=== PATIENT | female | born 1995 | race Caucasian/White ===

== ENCOUNTER → 2019-04-01 | Outpatient (CLI) | payer BC ==
--- NOTE | 2019-04-01 15:08 | FL ---
Hysterosalpingogram history: Infertility Following informed consent, the speculum was introduced into the vagina. The offset the cervix was id entified and prepped with Betadine. Catheter was introduced into the cervix and balloon inflated. Gen tle hand injection of nonionic contrast was performed under intermittent fluoroscopy. Spot images wer e obtained. Following the procedure the catheter was removed following deflation of the balloon. Spec ulum was removed. There is no immediate application. Patient remained in stable condition. 1 minute 37 seconds fluoroscopy time. 8 images obtained. FINDINGS: The uterus fills normally. Fallopian tubes are patent bilaterally. There is free spill of c ontrast material from each tube. IMPRESSION: Patent fallopian tubes.
== END | disposition home or self-care (01) ==
LOC: RADFLWHC 12:58
PROVIDERS: ATTEND Obstetrics & Gynecology Obstetrics
DX: N97.9 Female infertility, unspecified (principal)
CPT/HCPCS: 58340; 74740; Q9967

== ENCOUNTER 2020-11-03 17:11 | Emergency (ER) | payer BC, OTHER ==
[2020-11-03] MEDS ORDERED: SODIUM CHLORIDE 0.9% 1,000 ML IV STA (17:28)
--- NOTE | 2020-11-03 17:42 | ED ---
General Adult HPI - General Source: patient Mode of arrival: wheelchair Limitations: no limitations <Garfield Mena - Last Filed: 11/03/20 19:09> <Marguerite Hodges - Last Filed: 11/03/20 21:20> - General Chief complaint: Shortness of Breath Stated complaint: sob/20 weeks +covid Time Seen by Provider: 11/03/20 17:26 - History of Present Illness Initial comments: 25-year-old female, presenting to emergency Department with a chief complaint of shortness of breath. Patient states her symptoms began approximately 6 days ago. She does report a nonproductive cough mostly with occasional sputum production. She does report dyspnea on exertion along with some chest pressure in the morning. She denies history of asthma or smoking prior to her . No history of COPD UA. Patient also reports some generalized fatigue. She does report nausea, multiple episodes of nonbilious and nonbloody vomiting. States this feels like her typical nausea vomiting secondary to . Patient states she was tested yesterday and had the positive results today. Denies any abdominal pain vaginal or urinary symptoms. Denies any vaginal bleeding. Denies constipation or diarrhea. Denies night swe ats fevers or chills. (Garfield Mena) - Related Data Home Medications Medication Instructions Recorded Confirmed Acetaminophen Tab [Tylenol] 325 mg PO Q4H PRN 11/03/20 11/03/20 Aspirin EC [Ecotrin Low Dose] 81 mg PO DAILY 11/03/20 11/03/20 Pnv,Calcium 72/Iron/Folic Acid 1 tab PO DAILY 11/03/20 11/03/20 [ Plus Tablet] Previous Rx's Medication Instructions Recorded Ascorbic Acid [Vitamin C] 500 mg PO DAILY #10 tablet 11/03/20 Cephalexin [Keflex] 500 mg PO BID 1 Days #14 cap 11/03/20 Zinc Sulfate [Orazinc] 220 mg PO DAILY #10 capsule 11/03/20 Allergies Allergy/AdvReac Type Severity Reaction Status Date / Time No Known Allergies Allergy Verified 11/03/20 20:23 Review of Systems ROS Other: All systems not noted in ROS Statement are negative. <Garfield Mena - Last Filed: 11/03/20 19:09> ROS Other: All systems not noted in ROS Statement are negative. <Marguerite Hodges Triston - Last Filed: 11/03/20 21:20> ROS Statement: Those systems with pertinent positive or pertinent negative responses have been documented in the HPI. Past Medical History Past Medical History: No Reported History History of Any Multi-Drug Resistant Organisms: None Reported Past Surgical History: No Surgical Hx Reported Past Psychological History: No Psychological Hx Reported Smoking Status: Never smoker Past Alcohol Use History: None Reported Past Drug Use History: None Reported <Garfield Mena - Last Filed: 11/03/20 19:09> General Exam Limitations: no limitations General appearance: alert, in no apparent distress Head exam: Present: atraumatic, normocephalic, normal inspection Eye exam: Present: normal appearance, PERRL, EOMI Pupils: Present: normal accommodation ENT exam: Present: normal exam, normal oropharynx, mucous membranes moist, TM's normal bilaterally, normal external ear exam Neck exam: Present: normal inspection, full ROM. Absent: tenderness Respiratory exam: Present: normal lung sounds bilaterally. Absent: respiratory distress, wheezes, rales, rhonchi, stridor, chest wall tenderness, accessory muscle use Cardiovascular Exam: Present: regular rate, normal rhythm, normal heart sounds. Absent: systolic murmur, diastolic murmur GI/Abdominal exam: Present: soft ([place] nearing the umbilicus). Absent: distended, tenderness, guarding, rebound, rigid Extremities exam: Present: normal inspection, full ROM, normal capillary refill, other (+2 dorsalis pedis and posterior tibials bilaterally.). Absent: tenderne ss, pedal edema, joint swelling, calf tenderness Back exam: Present: normal inspection, full ROM. Absent: tenderness, CVA tenderness (R), CVA tenderness (L), muscle spasm, paraspinal tenderness Neurological exam: Present: alert, oriented X3, normal gait Psychiatric exam: Present: normal affect, normal mood Skin exam: Present: warm, dry, intact, normal color <Garfield Mena - Last Filed: 11/03/20 19:09> Course Vital Signs 11/03/20 11/03/20 11/03/20 17:19 18:15 19:00 Temperature 99.3 F Pulse Rate 132 H 111 H 106 H Respiratory 22 20 20 Rate Blood Pressure 113/69 101/56 120/67 O2 Sat by Pulse 99 96 99 Oximetry 11/03/20 21:01 Temperature 98.2 F Pulse Rate 110 H Respiratory 18 Rate Blood Pressure 120/72 O2 Sat by Pulse 96 Oximetry Medical Decision Making - Lab Data Result diagrams: 11/03/20 18:15 11/03/20 18:15 <Garfield Mena - Last Filed: 11/03/20 19:09> - Lab Data Result diagrams: 11/03/20 18:15 11/03/20 18:15 <Marguerite Hodges - Last Filed: 11/03/20 21:20> - Medical Decision Making 25-year-old female, presenting to the emergency department with a chief complaint of shortness of breath. CBC unremarkable. CMP reveals hypokalemia with potassium of 3.1. K-elías 40meq. Patient was also given IV fluids and antiemetics. Chest x-ray reveals increased pulmonary markings with no signs of heart failure. No signs of pneumonia. Patient was initially tachycardic but t his has gradually improved with IV fluids. UA pending At this time, patient care signed off to (Garfield Mena) I took over the patient's care. I did do a bedside ultrasound which demonstrates positive movement and heart tones with a rate of 154. I did review the patient's laboratory studies and imaging. Patient does have improvement in her heart rate. Feels comfortable for discharge at this time. Patient was discharged home. Follow up with her FLOORHAND 10 days after her symptoms resolve. Return to the emergency department for any new or worsening symptoms. She is given vitamin C and zinc for her covid symptoms. Keflex recommended for her abnormal UA. This was discussed with Dr. Meadows. He did agree to the treatment plan. The patient was discharged home in stable condition (Marguerite Hodges) - Lab Data Lab Results 11/03/20 11/03/20 11/03/20 Range/Units 18:15 18:15 19:26 WBC 8.5 (3.8-10.6) k/uL RBC 4.58 (3.80-5.40) m/uL Hgb 12.7 (11.4-16.0) gm/dL Hct 37.2 (34.0-46.0) % MCV 81.1 (80.0-100.0) fL MCH 27.6 (25.0-35.0) pg MCHC 34.1 (31.0-37.0) g/dL RDW 15.1 (11.5-15.5) % Plt Count 182 (150-450) k/uL MPV 7.3 Neutrophils % 89 % Lymphocytes % 7 % Monocytes % 3 % Eosinophils % 0 % Basophils % 0 % Neutrophils # 7.6 (1.3-7.7) k/uL Lymphocytes # 0.6 L (1.0-4.8) k/uL Monocytes # 0.3 (0-1.0) k/uL Eosinophils # 0.0 (0-0.7) k/uL Basophils # 0.0 (0-0.2) k/uL Sodium 136 L (137-145) mmol/L Potassium 3.1 L (3.5-5.1) mmol/L Chloride 108 H (98-107) mmol/L Carbon Dioxide 21 L (22-30) mmol/L Anion Gap 7 mmol/L BUN 3 L (7-17) mg/dL Creatinine 0.59 (0.52-1.04) mg/dL Est GFR (CKD-EPI)AfAm >90 (>60 ml/min/1.73 sqM) Est GFR (CKD-EPI)NonAf >90 (>60 ml/min/1.73 sqM) Glucose 98 (74-99) mg/dL Calcium 8.7 (8.4-10.2) mg/dL Total Bilirubin 0.6 (0.2-1.3) mg/dL AST 39 H (14-36) U/L ALT 46 H (4-34) U/L Alkaline Phosphatase 81 (38-126) U/L Total Protein 6.2 L (6.3-8.2) g/dL Albumin 3.3 L (3.5-5.0) g/dL Urine Color Yellow Urine Appearance Cloudy H (Clear) Urine pH 5.5 (5.0-8.0) Ur Specific [place] 1.011 (1.001-1.035) Urine Protein Trace H (Negative) Urine Glucose (UA) Negative (Negative) Urine Ketones 3+ H (Negative) Urine Blood Negative (Negative) Urine Nitrite Negative (Negative) Urine Bilirubin Negative (Negative) Urine Urobilinogen <2.0 (<2.0) mg/dL Ur Leukocyte Esterase Negative (Negative) Urine RBC 1 (0-5) /hpf Urine WBC 5 (0-5) /hpf Ur Squamous Epith Cells 9 H (0-4) /hpf Urine Bacteria Moderate H (None) /hpf Urine Mucus Few H (None) /hpf - EKG Data EKG Comments: Sinus tachycardia Ventricular rate 113, TX 164, QRS 84, QTC 433. (Garfield Mena) Disposition <Garfield Mena - Last Filed: 11/03/20 19:09> Is patient prescribed a controlled substance at d/c from ED?: No Time of Disposition: 21:06 <Marguerite Hodges - Last Filed: 11/03/20 21:20> Clinical Impression: COVID-19, Abnormal urinalysis, Hypokalemia Disposition: HOME SELF-CARE Condition: Stable Instructions (If sedation given, give patient instructions): Upper Respiratory Infection (ED) Additional Instructions: Please follow up with your OBGYN 10 days AFTER your symptoms resolve. Return to the ED for any new or worsening symptoms. Prescriptions: Cephalexin [Keflex] 500 mg PO BID 1 Days #14 cap Zinc Sulfate [Orazinc] 220 mg PO DAILY #10 capsule Ascorbic Acid [Vitamin C] 500 mg PO DAILY #10 tablet Referrals: None,Stated [REFERRING] - 1-2 days Lili Rose DO [Doctor of Osteopathic Medicine] - 1-2 days
[2020-11-03 18:24] LABS: Basophils % (A) 0 %; Eosinophils % (A) 0 %; HCT 37.2 % (34.0-46.0); HGB 12.7 gm/dL (11.4-16.0); Lymphocytes # (A) 0.6 k/uL (1.0-4.8); Lymphocytes % (A) 7 %; MCH 27.6 pg (25.0-35.0); MCHC 34.1 g/dL (31.0-37.0); MCV 81.1 fL (80.0-100.0); Mean Platelet Volume 7.3; Monocytes # (A) 0.3 k/uL (0-1.0); Monocytes % (A) 3 %; Neutrophils # (A) 7.6 k/uL (1.3-7.7); Neutrophils % (A) 89 %; Platelet Count 182 k/uL (150-450); RBC 4.58 m/uL (3.80-5.40); RDW 15.1 % (11.5-15.5); WBC 8.5 k/uL (3.8-10.6)
--- NOTE | 2020-11-03 18:32 | XR ---
EXAMINATION TYPE: XR chest 2V DATE OF EXAM: 11/03/2020 COMPARISON: NONE HISTORY: Cough TECHNIQUE: 2 views FINDINGS: There is no heart failure. Heart size is normal. Costophrenic angles are clear. There are n o hilar masses. There are chest leads. Pulmonary vascularity is normal. There is slight coarsening of interstitial markings. IMPRESSION: Normal heart. Slight increased lung markings without consolidation or heart failure.
[2020-11-03 18:33] LABS: ALT 46 U/L (4-34); AST 39 U/L (14-36); African American GFR (CKD) >90 (>60 ml/min/1.73 sqM); Albumin 3.3 g/dL (3.5-5.0); Alkaline Phosphatase 81 U/L (38-126); Anion Gap 7 mmol/L; Blood Urea Nitrogen 3 mg/dL (7-17); Calcium 8.7 mg/dL (8.4-10.2); Carbon Dioxide 21 mmol/L (22-30); Chloride 108 mmol/L (98-107); Glucose 98 mg/dL (74-99); Non-African American GFR(CKD) >90 (>60 ml/min/1.73 sqM); Potassium 3.1 mmol/L (3.5-5.1); Sodium 136 mmol/L (137-145); Total Bilirubin 0.6 mg/dL (0.2-1.3); Total Protein 6.2 g/dL (6.3-8.2)
[2020-11-03] MEDS ORDERED: POTASSIUM CHLORIDE ER 20 MEQ TAB.ER PO STA (18:52)
[2020-11-03] MEDS ORDERED: diphenhydrAMINE 50 MG/ML 1 ML VIAL IVP STA (18:53)
[2020-11-03] MEDS ORDERED: METOCLOPRAMIDE 5 MG/ML 2 ML VIAL IVP STA (18:53)
[2020-11-03 19:46] LABS: Appearance,Urine Cloudy (Clear); Bacteria,Urine Moderate /hpf; Bilirubin,Urine Negative (Negative); Blood,Urine Negative (Negative); Color,Urine Yellow; Glucose,Urine (UA) Negative (Negative); Ketones,Urine 3+ (Negative); Leukocyte Esterase,Urine Negative (Negative); Mucus,Urine Few /hpf; Nitrite,Urine Negative (Negative); PH, Urine 5.5 (5.0-8.0); Protein,Urine Trace (Negative); RBC,Urine 1 /hpf (0-5); Specific Gravity,Urine 1.011 (1.001-1.035); Squamous Epithelial Cell,Urine 9 /hpf (0-4); Urobilinogen,Urine <2.0 mg/dL (<2.0); WBC,Urine 5 /hpf (0-5)
[2020-11-03 21:03] VITALS: BP 120/72; PULSE 110; RESP 18; TEMP 98.2
[2020-11-03] MEDS ORDERED: CEPHALEXIN 500 MG CAP PO STA (21:06)
== END 2020-11-03 21:22 | disposition home or self-care (01) ==
LOC: EC 17:11
DX: U07.1 COVID-19 (principal); E87.6 Hypokalemia; R82.90 Unspecified abnormal findings in urine
CPT/HCPCS: 36415; 93005; 80053; 85025; 81001; 71046; 99285; 96374; 96375; 96361; J1200; J2765

== ENCOUNTER 2021-03-18 14:21 | Inpatient (IN) | payer BC, OTHER ==
--- NOTE | 2021-03-18 16:00 | US ---
EXAMINATION TYPE: US OB BPP wo non-stress DATE OF EXAM: 03/18/2021 COMPARISON: NONE CLINICAL HISTORY: low baseline FHR. EXAM PERFORMED: Transabdominal (TA) BPP PARAMETERS: PRESENTATION: Vertex HEART RATE: 101 bpm, 104 bpm RHYTHM: Normal VERONICA: 10.2 DIAPHRAGM IMAGED: BPP SCORIN. Breathin (1 episode of breathing of 30 second duration in 30 minutes of scanning time) 2. Movement: 0 (at least 3 discrete body movements in 30 minutes) 3. Tone: 0 (1 episode of active flexion/extension of limb) 4. VERONICA: 2 (VERONICA index > 5cm) IMPRESSION: TOTAL SCORE: 4 / 8. Score is only 4. Correlate clinically.
[2021-03-18] MEDS ORDERED: LACTATED RINGERS 1,000 ML IV ONE (16:28)
[2021-03-18] MEDS ORDERED: CITRIC ACID-SODIUM CITRATE 15 ML CUP PO ONE (16:28)
[2021-03-18 16:38] LABS: Basophils % (A) 0 %; Eosinophils # (A) 0.2 k/uL (0-0.7); Eosinophils % (A) 2 %; HCT 37.9 % (34.0-46.0); HGB 13.3 gm/dL (11.4-16.0); Lymphocytes # (A) 1.5 k/uL (1.0-4.8); Lymphocytes % (A) 14 %; MCV 85.7 fL (80.0-100.0); Mean Platelet Volume 9.2; Monocytes # (A) 0.5 k/uL (0-1.0); Monocytes % (A) 5 %; Neutrophils # (A) 8.1 k/uL (1.3-7.7); Neutrophils % (A) 78 %; Platelet Count 187 k/uL (150-450); RBC 4.42 m/uL (3.80-5.40); RDW 13.9 % (11.5-15.5); WBC 10.4 k/uL (3.8-10.6)
[2021-03-18] MEDS ORDERED: METOCLOPRAMIDE 5 MG/ML 2 ML VIAL IVP PRN (16:44)
[2021-03-18] MEDS ORDERED: diphenhydrAMINE 25 MG CAP PO PRN (16:44)
[2021-03-18] MEDS ORDERED: NALOXONE 0.4 MG/ML 1 ML VIAL IV PRN (16:44)
[2021-03-18] MEDS ORDERED: SIMETHICONE 80 MG CHEWABLE PO PRN (16:44)
[2021-03-18] MEDS ORDERED: ZOLPIDEM 5 MG TAB PO PRN (16:44)
[2021-03-18] MEDS ORDERED: diphenhydrAMINE 50 MG CAP PO PRN (16:44)
[2021-03-18] MEDS ORDERED: diphenhydrAMINE 50 MG/ML 1 ML VIAL IVP PRN ×2 (16:44)
[2021-03-18] MEDS ORDERED: ONDANSETRON 4 MG/2 ML VIAL IVP PRN (16:44)
[2021-03-18] MEDS ORDERED: OXYTOCIN 30 UNITS/500 ML NS 30 UNIT in SALINE 1 500ML.BAG IV SCH (16:45)
[2021-03-18] MEDS ORDERED: PHENYLEPHRINE-0.9% NACL SYG 1,000 MCG/10 ML SYRINGE ONE (17:07)
[2021-03-18] MEDS ORDERED: OXYTOCIN 10 UNIT/ML 1 ML VIAL ONE (17:07)
[2021-03-18] MEDS ORDERED: ONDANSETRON 4 MG/2 ML VIAL ONE (17:07)
[2021-03-18] MEDS ORDERED: MORPHINE SULFATE (PF) 0.3 MG/0.3 ML SYR ONE (17:07)
[2021-03-18] MEDS ORDERED: ePHEDrine SULFATE/0.9% NACL/PF 50 MG/5 ML SYRINGE IV ONE (17:07)
--- NOTE | 2021-03-18 18:06 | P.OP ---
Date of Procedure: 03/18/21 Preoperative Diagnosis: IUP @ 39 3/7 weeks, nonreassuring status Postoperative Diagnosis: Same Procedure(s) Performed: Primary low transverse section Anesthesia: spinal Surgeon: Lili Rose Customer Service Trainer #1: Aron Haji Estimated Blood Loss (ml): 684 IV fluids (ml): 1,300 Urine output (ml): 100 Pathology: other (Placenta) Condition: stable Disposition: observation Indications for Procedure: 25-year-old at 39 3 was seen in the office today for routine care. Low baseline was noted. Patient was sent to OB for continued monitoring. baseline of 110 was appreciated with minimal variability, category 2. BPP was performed and found to be 4 out of 8. Patient was counseled on primary secondary to nonreassuring status. Patient stated understanding and was taken back to the operating suite. Operative Findings: Normal uterus tubes and ovaries were appreciated. Viable female delivered at 1725, weight of 8 lbs. 9 oz. and Apgars of 8 and 9 at one and 5 minutes respectively. Description of Procedure: Patient was taken back to the operating suite where spinal anesthesia was found be adequate by the anesthesia department. She was then prepped and draped in normal sterile fashion in the dorsal supine position. A Pfannenstiel skin incision made with scalpel and carried through to underlying layer of fascia. Fascia was then incised midline and extended laterally. The superior aspect of the fascial incision was then grasped john clamps, elevated and underlying rectus muscles dissected off sharply. Attention was then turned to the inferior aspect of the fascial incision which was grasped john clamps, elevated and the underlying rectus muscle was dissected off sharply. The rectus muscles were in the midline the peritoneum was identified and entered. This incision was then extended superiorly and inferiorly with good visualization of bladder. The bladder blade was then inserted into the pelvis. The vesicouterine peritoneum was identified and the bladder flap was then created using sharp and blunt dissection. Hysterotomy incision was then made with a scalpel clear fluid was obtained. The infant was noted to be in a vertex presentation. Infant was delivered in usual fashion the umbilical cord was doubly clamped and cut and handed off to awaiting RN. A spontaneous cry was noted at . The placenta was then delivered manually the uterus was cleared of all clots and debris and delivered from the abdomen. Uterine incision was then closed 0 Vicryl in a running locked fashion. A second imbricating layer was performed. Bleeding was noted on the right-hand side of the uterus therefore a [id number] suture was used to obtain hemostasis. The pelvis was then copiously irrigated and returned to the abdomen. The gutters were cleared of all clots and debris. A small amount of bleeding was noted on the midportion of the hysterotomy incision therefore a [id number] suture of 0 Vicryl was performed. Hemostasis was then appreciated. The peritoneum was then loosely reapproximated. The rectus muscles were inspected and found to be hemostatic. The fascia was then closed with 0 Vicryl in a running fashion from one lateral edge the midline and the other lateral edge the midline. The subcutaneous tissue was then irrigated found to be hemostatic and closed with 3- 0 Vicryl in a running fashion. The skin was then closed with 4-0 Vicryl in a subcu fashion. Steri-Strips and sterile dressings were applied. All counts were noted be correct 2 at the end the procedure. Patient and tolerated delivery well and are resting comfortably.
--- NOTE | 2021-03-18 18:06 | P.HPOB ---
History of Present Illness H&P Date: 03/18/21 Chief Complaint: IUP @ 39 3/7 weeks, non reassuring status This is a 25 yo at 39 3/7 weeks that was seen in the office today and low baseline of 100 was noted. Patient presented to OB triage for planned nonstress test. Nonstress test revealing low baseline of 110, BPP was performed and found to be 4 out of 10. Patient notes movement, denies contractions vaginal bleeding or loss of fluid. Patient has been receiving routine care which has been essentially uncomplicated, until today. On bloodwork this patient has a blood type of A+, rubella status is immune, B surface antigen negative, HIV negative, group beta strep culture was negative. Review of Systems Constitutional: Denies chills, Denies fatigue, Denies fever Ears, nose, mouth and throat: Denies headache Cardiovascular: Reports leg edema Respiratory: Denies dyspnea Gastrointestinal: Denies constipation, Denies diarrhea, Denies nausea, Denies vomiting Genitourinary: Reports Past Medical History Past Medical History: No Reported History History of Any Multi-Drug Resistant Organisms: None Reported Past Surgical History: No Surgical Hx Reported Smoking Status: Never smoker - Past Family History Father Family Medical History: Chest Pain / Angina Additional Family Medical History / Comment(s): [place] stents placed Mother Family Medical History: Cancer Medications and Allergies Home Medications Medication Instructions Recorded Confirmed Type Aspirin EC [Ecotrin Low Dose] 81 mg PO DAILY 11/03/20 03/18/21 History Pnv,Calcium 72/Iron/Folic Acid 1 tab PO DAILY 11/03/20 03/18/21 History [ Plus Tablet] Escitalopram [Lexapro] 10 mg PO DAILY 03/18/21 03/18/21 History Allergies Allergy/AdvReac Type Severity Reaction Status Date / Time No Known Allergies Allergy Verified 03/18/21 14:25 Exam Osteopathic Statement: *. No significant issues noted on an osteopathic structural exam other than those noted in the History and Physical/Consult. 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 Results Result Diagrams: 03/18/21 16:35 Assessment and Plan (1) 39 weeks gestation of Current Visit: Yes Status: Acute Code(s): Z3A.39 - 39 WEEKS GESTATION OF SNOMED Code(s): 89918162 (2) Non-reassuring status Current Visit: Yes Status: Acute Code(s): ULA5028 - SNOMED Code(s): 644062660 Plan: This is a 25 yo at 39 3/7 weeks, noted low baseline, and BPP of 4/10. I did discuss with the patient the findings of the biophysical profile along with a low baseline, and biophysical profile of 4 out of 10. Discussed with patient need for primary secondary to nonreassuring status. Patient states understanding. is discussed with the patient and partner risks are reviewed including but down to infection, bleeding, damage to bladder, bowel, injury. Patient states understanding and anesthesia is notified. We will await labs and plan on spinal anesthesia as this is not emergent.
[2021-03-18] MEDS: ACETAMINOPHEN IV (For NPO) 1,000 MG in EMPTY BAG 1 BAG IVPB SCH (21:12)
[2021-03-19] MEDS: IBUPROFEN IV 800 MG in SODIUM CHLORIDE 0.9% 250 ML IV SCH ×3 (01:00→21:10)
[2021-03-19] MEDS: LACTATED RINGERS 1,000 ML IV SCH ×3 (02:02→21:10)
[2021-03-19] MEDS: ACETAMINOPHEN TAB 500 MG TAB PO SCH ×5 (02:02→21:10)
[2021-03-19] MEDS: SENNOSIDES-DOCUSATE SODIUM 1 EACH TAB PO SCH ×3 (02:02→19:38)
[2021-03-19] MEDS: IBUPROFEN 600 MG TAB PO SCH ×4 (02:03→21:10)
[2021-03-19] MEDS: ACETAMINOPHEN IV (For NPO) 1,000 MG in EMPTY BAG 1 BAG IVPB SCH (04:10)
[2021-03-19 07:46] LABS: Basophils % (A) 0 %; Eosinophils # (A) 0.2 k/uL (0-0.7); Eosinophils % (A) 2 %; HGB 10.4 gm/dL (11.4-16.0); Lymphocytes # (A) 1.1 k/uL (1.0-4.8); Lymphocytes % (A) 13 %; MCH 30.1 pg (25.0-35.0); MCHC 34.7 g/dL (31.0-37.0); MCV 86.7 fL (80.0-100.0); Mean Platelet Volume 9.7; Monocytes # (A) 0.5 k/uL (0-1.0); Monocytes % (A) 6 %; Neutrophils % (A) 78 %; Platelet Count 144 k/uL (150-450); RBC 3.46 m/uL (3.80-5.40); RDW 14.1 % (11.5-15.5)
--- NOTE | 2021-03-19 08:32 | P.PNOBGPC ---
Subjective - Subjective Principal diagnosis: POD 1 LTCS non reassuring testing Interval history: She did well overnight. She is ambulating and voiding without difficulty. She states her pain is well-controlled. She is tolerating clear liquids without nausea or vomiting. Breast-feeding is going well. Patient reports: Reports appetite normal, Reports voiding normally, Reports pain well controlled, Reports ambulating normally : doing well Objective - Vital Signs Latest vital signs: Vital Signs Temp Pulse Resp BP Pulse Ox 03/19/21 04:00 97.7 F 90 16 111/69 03/18/21 19:57 96.3 F L 98 16 120/67 98 03/18/21 19:27 95 16 122/61 98 03/18/21 19:00 88 16 138/63 99 03/18/21 18:45 94 16 118/56 99 03/18/21 18:30 94 16 118/56 99 03/18/21 18:15 89 16 122/64 99 03/18/21 18:00 96.8 F L 92 16 119/58 99 03/18/21 16:23 97.8 F 83 16 99 03/18/21 15:28 97.8 F 16 Intake and Output 03/18/21 03/19/21 03/19/21 22:59 06:59 14:59 Intake Total 50 Output Total 200 600 Balance -150 -600 Intake: Oral 50 Output: Urine 200 600 Uretheral (Pacheco) 600 Other: Voiding Method Indwelling Catheter Indwelling Catheter Weight 117.934 kg - Exam Extremities: Present: normal, edema Abdomen: Present: normal appearance Incision: Present: normal, dry, intact Uterus: Present: normal, firm - Labs Labs: Abnormal Lab Results - Last 24 Hours (Table) 03/18/21 03/19/21 Range/Units 16:35 06:42 RBC 3.46 L (3.80-5.40) m/uL Hgb 10.4 L (11.4-16.0) gm/dL Hct 30.0 L (34.0-46.0) % Plt Count 144 L (150-450) k/uL Neutrophils # 8.1 H (1.3-7.7) k/uL Assessment and Plan (1) 39 weeks gestation of Current Visit: Yes Status: Acute Code(s): Z3A.39 - 39 WEEKS GESTATION OF SNOMED Code(s): 27121834 (2) Non-reassuring status Current Visit: Yes Status: Acute Code(s): UMA1311 - SNOMED Code(s): 082609629 (3) S/P section Current Visit: Yes Status: Acute Code(s): Z98.891 - HISTORY OF UTERINE SCAR FROM PREVIOUS SURGERY SNOMED Code(s): 018955541 Plan: 25-year-old G1 now P1 status post primary secondary to nonreassuring testing, BPP of 4. Patient is status post primary , postop day 1. Patient is doing well. We'll advance diet this morning. Encouraged increas ed ambulation and anticipate discharge home tomorrow. Plan to continue routine postoperative care.
--- NOTE | 2021-03-19 09:06 | P.PN ---
Progress Note - Text Date:03/19/21 Time:640 Patient is status post . Patient seen this morning with VAS score of 4.no c/o of pruritus, no c/o nausea/vomiting, comfortable and doing well.
[2021-03-19] MEDS: ESCITALOPRAM 10 MG TAB PO SCH (12:02)
[2021-03-20] MEDS: IBUPROFEN 600 MG TAB PO SCH ×3 (00:05→07:55)
[2021-03-20] MEDS: ACETAMINOPHEN TAB 500 MG TAB PO SCH ×2 (04:39→10:48)
--- NOTE | 2021-03-20 08:35 | P.DS ---
Providers Date of admission: 03/18/21 16:08 Expected date of discharge: 03/20/21 Attending physician: Lili Rose Primary care physician: Stated None - Discharge Diagnosis(es) (1) 39 weeks gestation of Current Visit: Yes Status: Acute (2) Non-reassuring status Current Visit: Yes Status: Acute (3) S/P section Current Visit: Yes Status: Acute Hospital Course: This is a pleasant 25-year-old G1 now P1 status post primary . Patient was seen in the office on 03/18 for routine visit. Low baseline was noted therefore patient was sent to the hospital for continued surveillance. heart tones were noted to be in the 110s with moderate variability, biophysical profile was ordered and noted to be 4. Patient was counseled on primary secondary to nonreassuring testing. Patient stated understanding and was taken back to the operating suite where spinal anesthesia was obtained without difficulty by the anesthesia department. Patient underwent primary section without complication. Patient delivered a liveborn female at 1725, weight of 8 lbs. 9 oz. and Apgars of 8 and 9 at one and 5 minutes respectively. Amniotic fluid was noted to be clear. Patient's postoperative course has been uneventful. On this postoperative day #2 she is ambulating and voiding without difficulty. She is tolerating a regular diet without nausea or vomiting. She states her pain is well-controlled with oral ibuprofen and Tylenol. She would like discharge home. Plan - Discharge Summary New Discharge Prescriptions: No Action Pnv,Calcium 72/Iron/Folic Acid [ Plus Tablet] 1 tab PO DAILY Aspirin EC [Ecotrin Low Dose] 81 mg PO DAILY Escitalopram [Lexapro] 10 mg PO DAILY Discharge Medication List Aspirin EC [Ecotrin Low Dose] 81 mg PO DAILY 11/03/20 [History] Pnv,Calcium 72/Iron/Folic Acid [ Plus Tablet] 1 tab PO DAILY 11/03/20 [History] Escitalopram [Lexapro] 10 mg PO DAILY 03/18/21 [History] Follow up Appointment(s)/Referral(s): Lili Rose DO [Doctor of Osteopathic Medicine] - 2 Weeks Patient Instructions/Handouts: (DC), (GEN) Discharge Disposition: HOME SELF-CARE
[2021-03-20 09:31] VITALS: BP 134/75; PULSE 81; RESP 18; TEMP 99.3
[2021-03-20] MEDS: ESCITALOPRAM 10 MG TAB PO SCH (09:57)
[2021-03-20] MEDS: SENNOSIDES-DOCUSATE SODIUM 1 EACH TAB PO SCH (10:49)
--- NOTE | 2021-03-22 14:15 | P.MSEPDOC ---
Presenting Problems - Arrival Data Date of Arrival on Unit: 03/18/21 Time of Arrival on Unit: 16:08 Mode of Transport: Portable - Complaint OB-Reason for Admission/Chief Complaint: NST Comment: LOW FHR IN OFFICE Medical History - Information : 1 Para: 0 Term: 0 : 0 Abortions: Spontaneous or Elective: 0 Number of Living Children: 0 - Gestational Age Gestational Age by GILES (wks/days): 39 Weeks and 3 Days Review of Systems - Review of Systems Constitutional: No problems Breast: No problems ENT: No problems Cardiovascular: No problems Respiratory: No problems Gastrointestinal: No problems Genitourinary: No problems Musculoskeletal: No problems Neurological: No problems Skin: No problems Vital Signs - Temperature Temperature: 99.3 F Temperature Source: Oral - Pulse Right Pulse Rate: 81 Pulse Assessment Method: Automatic Cuff - Respirations Respiratory Rate: 18 Oxygen Delivery Method: Room Air O2 Sat by Pulse Oximetry: 97 - Blood Pressure Right Arm Blood Pressure: 134/75 Blood Pressure Mean: 94 Blood Pressure Source: Automatic Cuff Medical Screen Scoring (Pre) - Cervical Exam Dilation: Exam Deferred Effacement: Exam Deferred Membranes: Intact - Uterine Contractions Frequency: N/A Duration: N/A Intensity: N/A - Maternal Vital Signs Maternal Temperature: N/A Maternal Blood Pressure: N/A Signs of Preeclampsia: N/A Maternal Respirations: N/A - Maternal Trauma Maternal Trauma: N/A - Assessment - Baby A Baseline FHR: 100 Heart Rate - NICHD Category: Category I (Normal) = 0 NST: Reactive Position: N/A Station: N/A - Total Score - Baby A Total Score - Baby A: 0 - Total Score - Baby B Total Score - Baby B: 0 - Total Score - Baby C Total Score - Baby C: 0 - Level of Risk - Baby A Level of Risk - Baby A: Low (0-5) - Level of Risk - Baby B Level of Risk - Baby B: Low (0-5) - Level of Risk - Baby C Level of Risk - Baby C: Low (0-5) Physician Notification (Pre) - Physician Notified Physician Notified Date: 03/18/21 Physician Notified Time: 15:00 New Order Received: Yes - Notification Comment Comment: BPP ORDERED Medical Screen Scoring (Post) - Cervical Exam Dilation: Exam Deferred Effacement: Exam Deferred Membranes: Intact - Uterine Contractions Frequency: N/A Duration: N/A Intensity: N/A - Maternal Vital Signs Maternal Temperature: N/A Maternal Blood Pressure: N/A Signs of Preeclampsia: N/A Maternal Respirations: N/A - Pain Assessment Pain Intensity: 0 Pain Behavior: None Exhibited Pharmacological Interventions: Discuss Pain Med Options - Maternal Trauma Maternal Trauma: N/A - Assessment - Baby A Heart Rate: 100 Heart Rate - NICHD Category: Category I (Normal) = 0 NST: Reactive Position: N/A Station: N/A - Total Score Total Score - Baby A: 0 Total Score - Baby B: 0 Total Score - Baby C: 0 - Post Treatment Level of Risk Post Treatment Level of Risk - Baby A: Low (0-5) Post Treatment Level of Risk - Baby B: Low (0-5) Post Treatment Level of Risk - Baby C: Low (0-5) Physician Notification (Post) - Physician Notified Physician Notified Date: 03/18/21 Physician Notified Time: 15:57 Spoke With: New Order Received: Yes - Notification Comment Comment: ADMIT PT TO ROOM Disposition - Disposition OB Disposition: Admit Discharge Date: 03/20/21 Discharge Time: 12:15 I agree with the RN Medical Screening Exam: Yes Case reviewed; plan agreed upon as documented in EMR&OBIX.: Yes Diagnosis: RELATED CONDITIONS, UNSPECIFIED, THIRD TRIMESTER
== END 2021-03-20 12:15 | disposition home or self-care (01) | DRG 788 ==
LOC: FBPOP 14:21 → 4FBP 16:08
PROVIDERS: ADMIT Obstetrics & Gynecology Obstetrics; ATTEND Obstetrics & Gynecology Obstetrics
PROC: 10D00Z1 Extraction of Products of Conception, Low, Open Approach (ICD-10-PCS; principal; 2021-03-18 17:00)
DX: O36.8330 Maternal care for abnormalities of the fetal heart rate or rhythm, third trimester, not applicable or unspecified (principal); Z37.0 Single live birth; Z3A.39 39 weeks gestation of pregnancy; Z79.82 Long term (current) use of aspirin; Z79.899 Other long term (current) drug therapy
CPT/HCPCS: 59025; 76819; 85025; 86850; 86900; 86901; 99213

== ENCOUNTER 2022-08-21 03:36 | Outpatient (CLI) | payer BC, OTHER ==
[2022-08-21] MEDS ORDERED: LACTATED RINGERS 1,000 ML IV SCH (04:15)
[2022-08-21] MEDS: NIFEdipine 10 MG CAP PO PRN ×3 (05:59→06:40)
[2022-08-21] MEDS ORDERED: BETAMET ACET-BETAMETH SOD PHOS 6 MG/ML MDV IM SCH (06:00)
--- NOTE | 2022-08-21 07:41 | P.OBCN ---
History of Present Illness Consult date: 08/21/22 Reason for consult: other Chief complaint: Contractions at 33-0/7 weeks History of present illness: This is a 27-year-old 2 para 1001 woman who presents to labor and delivery triage after several hours of worsening contractions. She denies leakage of fluid or vaginal bleeding. She's had an uncomplicated thus far. She reports no recent illness or trauma. She's had good movement. She is followed in her by Dr. Rose. History of a previous term primary low transverse section. Review of Systems All systems: negative Past Medical History Past Medical History: No Reported History History of Any Multi-Drug Resistant Organisms: None Reported Past Surgical History: No Surgical Hx Reported Past Anesthesia/Blood Transfusion Reactions: No Reported Reaction Smoking Status: Never smoker - Past Family History Father Family Medical History: Chest Pain / Angina Additional Family Medical History / Comment(s): [place] stents placed Mother Family Medical History: Cancer Medications and Allergies Home Medications Medication Instructions Recorded Confirmed Type Aspirin EC [Ecotrin Low Dose] 81 mg PO DAILY 11/03/20 08/21/22 History Vit No.180/Iron/Folic 1 tab PO DAILY 11/03/20 08/21/22 History [ Plus Tablet] Escitalopram [Lexapro] 10 mg PO DAILY 03/18/21 08/21/22 History Allergies Allergy/AdvReac Type Severity Reaction Status Date / Time No Known Allergies Allergy Verified 03/18/21 14:25 Exam Intake and Output 08/20/22 08/21/22 08/21/22 22:59 06:59 14:59 Other: Weight 124.738 kg Please refer to OBIX for R and cervical evaluation. My initial evaluation the patient this is a visibly gravid female who is in no acute distress. She is resting comfortably. Targeted physical exam is performed. The abdomen is gravid, soft and nontender. She has no flank pain. The uterus is soft. Sizes consistent with stated gestational age. She has 1+ bilateral lower extremity edema. Pelvic examination is per documented RN note. monitoring. Reveals previous category 1 heart rate tracing. No uterine contractions noted currently. Assessment and Plan (1) 33 weeks gestation of Current Visit: Yes Status: Acute Code(s): Z3A.33 - 33 WEEKS GESTATION OF SNOMED Code(s): 01244223 (2) contractions Current Visit: Yes Status: Acute Code(s): O47.00 - FALSE LABOR BEFORE 37 COMPLETED WEEKS OF GEST, UNSP TRI SNOMED Code(s): 790940711 Plan: This is a 27-year-old 2 para 1001 woman who presents to labor and delivery triage with contractions at 33-0/7 weeks gestation. Initially the posterior cervix was closed and thick however she was waldemar regularly. She received IV fluid rehydration and her cervix was reevaluated by the same examiner. At that time the cervix was 1+ centimeters dilated. It was thought that perhaps the initial cervical exam was not correct. The patient continued to be monitored and her contraction activity I did initially decreased after fluid rehydration. But she began having increasing contraction activity again therefore she received the Procardia protocol for tocolyse this as well as a single dose of betamethasone. Following completion of the Procardia protocol she had no further contractions. The patient reported cessation of contraction activity and discomfort. Her cervix remained unchanged. status remained reassuring. Plan was therefore to discharge home with return to labor and delivery triage for second dose of betamethasone in 24 hours. labor signs and symptoms were reviewed with the patient in detail. She is discharged home in 2 decreased activity and close follow-up. Case was discussed with the patient's attending physician who agrees with the plan for care and follow-up. Time with Patient: Less than 30
[2022-08-21 09:19] VITALS: BP 131/64; PULSE 82; RESP 16; TEMP 98.3
== END 2022-08-21 08:22 | disposition home or self-care (01) ==
LOC: FBPOP 03:36
PROVIDERS: ATTEND Obstetrics & Gynecology
DX: O60.03 Preterm labor without delivery, third trimester (principal); Z3A.33 33 weeks gestation of pregnancy
CPT/HCPCS: 59025; 99213; 96360; 96372; J0702

== ENCOUNTER 2022-08-22 07:02 | Outpatient (CLI) | payer BC, OTHER ==
[2022-08-22] MEDS ORDERED: BETAMET ACET-BETAMETH SOD PHOS 6 MG/ML MDV IM ONE (07:15)
== END 2022-08-22 07:15 | disposition home or self-care (01) ==
LOC: FBPOP 07:02
PROVIDERS: ATTEND Obstetrics & Gynecology
DX: Z34.83 Encounter for supervision of other normal pregnancy, third trimester (principal); Z3A.33 33 weeks gestation of pregnancy

== ENCOUNTER 2022-08-25 08:51 | Inpatient (IN) | payer BC, OTHER ==
[2022-08-25] MEDS ORDERED: CITRIC ACID-SODIUM CITRATE 15 ML CUP PO ONE (09:16)
[2022-08-25] MEDS ORDERED: ceFAZolin 3 GM in SODIUM CHLORIDE 0.9% 100 ML IVPB ONE (09:19)
[2022-08-25] MEDS ORDERED: OXYTOCIN 10 UNIT/ML 1 ML VIAL IM PRN (09:23)
[2022-08-25] MEDS ORDERED: TERBUTALINE 1 MG/ML VIAL SQ PRN (09:23)
[2022-08-25] MEDS ORDERED: METHYLERGONOVINE 0.2 MG/ML 1 ML AMP IM PRN (09:23)
[2022-08-25] MEDS ORDERED: LIDOCAINE 0.5% (PF) 5 MG/ML (50 ML SDV) SQ PRN (09:23)
[2022-08-25] MEDS ORDERED: CARBOPROST TROMETHAMINE 250 MCG/ML 1 ML AMP IM PRN (09:23)
[2022-08-25] MEDS ORDERED: LACTATED RINGERS 1,000 ML IV SCH (09:30)
[2022-08-25] MEDS ORDERED: BUTORPHANOL 1 MG/ML 1 ML VIAL IV ONE (09:40)
[2022-08-25] MEDS ORDERED: diphenhydrAMINE 50 MG CAP PO PRN (09:56)
[2022-08-25] MEDS ORDERED: BENZOCAINE/MENTHOL SPRAY 1 GM/SPRAY AEROSOL TOPICAL PRN (09:56)
[2022-08-25] MEDS ORDERED: IBUPROFEN 600 MG TAB PO PRN (09:56)
[2022-08-25] MEDS ORDERED: ZOLPIDEM 5 MG TAB PO PRN (09:56)
[2022-08-25] MEDS ORDERED: SIMETHICONE 80 MG CHEWABLE PO PRN (09:56)
[2022-08-25] MEDS ORDERED: diphenhydrAMINE 50 MG/ML 1 ML VIAL IVP PRN ×2 (09:56)
[2022-08-25] MEDS ORDERED: LANOLIN CREAM 5 GM TUBE TOPICAL PRN (09:56)
[2022-08-25] MEDS ORDERED: diphenhydrAMINE 25 MG CAP PO PRN (09:56)
[2022-08-25] MEDS ORDERED: HYDROCORTISONE 2.5% RECTAL CREAM 30 GM TUBE RECTAL PRN (09:56)
[2022-08-25] MEDS ORDERED: ACETAMINOPHEN TAB 325 MG TAB PO PRN (09:56)
[2022-08-25] MEDS ORDERED: OXYTOCIN 30 UNITS/500 ML NS 30 UNIT in SALINE 1 500ML.BAG IV SCH (10:00)
[2022-08-25 10:13] VITALS: RESP 16
[2022-08-25 13:44] LABS: Basophils % (A) 0 %; Eosinophils # (A) 0.1 k/uL (0-0.7); Eosinophils % (A) 0 %; HCT 39.4 % (34.0-46.0); HGB 13.9 gm/dL (11.4-16.0); Lymphocytes # (A) 1.8 k/uL (1.0-4.8); Lymphocytes % (A) 10 %; MCH 29.7 pg (25.0-35.0); MCHC 35.2 g/dL (31.0-37.0); MCV 84.2 fL (80.0-100.0); Mean Platelet Volume 9.7; Monocytes # (A) 0.9 k/uL (0-1.0); Monocytes % (A) 5 %; Neutrophils # (A) 14.8 k/uL (1.3-7.7); Neutrophils % (A) 83 %; Platelet Count 228 k/uL (150-450); RBC 4.68 m/uL (3.80-5.40); WBC 17.8 k/uL (3.8-10.6)
[2022-08-25 16:11] VITALS: BP 96/63; PULSE 89; TEMP 97.5
--- NOTE | 2022-08-25 17:00 | P.HPOB ---
History of Present Illness H&P Date: 08/25/22 Chief Complaint: IUP at 33-4/7 weeks, active labor This is a 27yo at 33 4/7 weeks that presents with complaints of regular painful contractions starting around 130 this am she denies LOF, VB she was seen in triage last week with complaints of contractions, patient was monitored for several hours with no cervical change appreciated. Patient did receive Procardia. Patient was discharged with Procardia in addition. In addition patient was given betamethasone 2 for lung maturation given her contractions. Patient states she was doing well until contractions began around 1:30 this morning. Patient has a prior section at term for nonreassuring heart tones Patient has been receiving routine care with myself which has been essentially uncomplicated for this . Review of Systems Constitutional: Reports fatigue, Denies chills, Denies fever Ears, nose, mouth and throat: Denies headache Cardiovascular: Reports leg edema Respiratory: Denies dyspnea Gastrointestinal: Denies constipation, Denies diarrhea, Denies nausea, Denies vomiting Genitourinary: Reports Past Medical History Past Medical History: No Reported History History of Any Multi-Drug Resistant Organisms: None Reported Past Surgical History: No Surgical Hx Reported Past Anesthesia/Blood Transfusion Reactions: No Reported Reaction Smoking Status: Never smoker - Past Family History Father Family Medical History: Chest Pain / Angina Additional Family Medical History / Comment(s): [place] stents placed Mother Family Medical History: Cancer Medications and Allergies Home Medications Medication Instructions Recorded Confirmed Type Aspirin EC [Ecotrin Low Dose] 81 mg PO DAILY 11/03/20 08/25/22 History Vit No.180/Iron/Folic 1 tab PO DAILY 11/03/20 08/25/22 History [ Plus Tablet] Escitalopram [Lexapro] 10 mg PO DAILY 03/18/21 08/25/22 History NIFEdipine XL [Procardia XL] 60 mg PO DAILY 08/25/22 08/25/22 History Allergies Allergy/AdvReac Type Severity Reaction Status Date / Time No Known Allergies Allergy Verified 08/25/22 09:58 Exam Osteopathic Statement: *. No significant issues noted on an osteopathic structural exam other than those noted in the History and Physical/Consult. 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 heart tones returned be category 1 for gestational age. Contractions are not graphing well although she is noting them every 2 minutes. Assessment and Plan (1) Active labor Current Visit: Yes Status: Acute Code(s): O60.10X0 - LABOR W DELIVERY, UNSP TRIMESTER, UNSP SNOMED Code(s): 6497827 (2) 33 weeks gestation of Current Visit: No Status: Acute Code(s): Z3A.33 - 33 WEEKS GESTATION OF SNOMED Code(s): 40384717 (3) contractions Current Visit: No Status: Acute Code(s): O47.00 - FALSE LABOR BEFORE 37 COMPLETED WEEKS OF GEST, UNSP TRI SNOMED Code(s): 618365303 Plan: 27-year-old at 33 weeks of gestation presents with complaints of regular painful contractions on initial exam patient is noted to be 78 cm dilated. Mleo cancino initially is requesting repeat section given her prior delivery. On counseling patient is encouraged to continue with a trial of labor after . Patient is quickly noted to be completely dilated with a bulging bag of water. Patient has moved into a labor and delivery suite for vaginal delivery.
--- NOTE | 2022-08-25 17:04 | P.PROBDLV ---
Vaginal Delivery Note - . Vaginal Delivery Note: Findings viable male delivered at 934, weight of 5 lbs. 4 oz. 7-year-old at 33-4/7 weeks that presented to labor and delivery this morning with complaints of regular painful contractions. Patient states that she started waldemar around 1:30 AM and they became regular. She did take her Procardia but no relief of contractions was noted therefore she proceeded to labor and delivery. On initial presentation she was noted to be 7 cm dilated. Patient initially wanted to proceed with repeat section. On my evaluation she was completely dilated with a bulging bag of water at a 0 station. Patient was counseled on trial of labor and she agreed. Patient was taken to a labor and delivery suite where amniotomy is performed and clear fluid was obtained. heart tones returned category 1 throughout. Patient began to feel the urge to push therefore with excellent maternal effort she brought the down to a presentation. With additional pushes she had a normal spent taste vaginal delivery of a viable male infant at 934, weight of 5 lbs. 4 oz. Infant did have a loose shoulder cord that was delivered through. The umbilical cord was doubly clamped and cut and the was handed to awaiting maintenance supervisor mechanical. The placenta was then delivered spontaneously intact with a three-vessel cord being noted. Spontaneous cry was noted at . On inspection the patient's vaginal vault a first 3 vaginal laceration was lily reciated. This was repaired in the usual fashion with 3-0 repeat after instillation of lidocaine. Uterus is noted to be slightly above the umbilicus manual extraction revealed a large amount of clots proximally 100 mL afterwards the uterus noted be firm and at the umbilicus. All counts were correct 2 at the delivery. Estimated blood loss 200 mL
--- NOTE | 2022-08-25 17:07 | P.DS ---
Providers Date of admission: 08/25/22 09:23 Expected date of discharge: 08/25/22 Attending physician: Lili Rose Primary care physician: Stated None - Discharge Diagnosis(es) (1) Active labor Current Visit: Yes Status: Acute (2) 33 weeks gestation of Current Visit: No Status: Acute (3) contractions Current Visit: No Status: Acute (4) (vaginal after ) Current Visit: Yes Status: Acute Hospital Course: 27-year-old G2 now P1012 that presented to labor and delivery with complaints of regular painful contractions. Patient states contractions began around 1:30 AM. Patient states it became regular and more painful therefore she presented to labor and delivery. On initial presentation to labor and delivery patient was noted to be 7 cm dilated. Patient initially wanted to proceed with repeat section as scheduled, on my exam she was noted to be completely dilated and feeling pressure. Patient was counseled on trial of labor after . Patient states understanding. Patient was willing to proceed with trial of labor after . Patient underwent amniotomy clear fluid was obtained and patient underwent a normal spent taste vaginal delivery of a viable male at 934, weight of 5 lbs. 4 oz. Patient did sustain a first-degree vaginal laceration which was repaired in the usual fashion with 3-0 repeat after delivery. Patient is currently doing well, was transferred to [facility]. Patient's requesting discharge home. Lochia has been moderate and appropriate for status. Patient states her pain is well-controlled. She is ambulating and voiding without difficulty. Patient did not receive an epidural during labor she had a precipitous delivery. We'll plan on discharge home so patient may visit her infant at [facility]. Patient Condition at Discharge: Good Plan - Discharge Summary New Discharge Prescriptions: No Action Vit No.180/Iron/Folic [ Plus Tablet] 1 tab PO DAILY Aspirin EC [Ecotrin Low Dose] 81 mg PO DAILY Escitalopram [Lexapro] 10 mg PO DAILY NIFEdipine XL [Procardia XL] 60 mg PO DAILY Discharge Medication List Aspirin EC [Ecotrin Low Dose] 81 mg PO DAILY 11/03/20 [History] Vit No.180/Iron/Folic [ Plus Tablet] 1 tab PO DAILY 11/03/20 [History] Escitalopram [Lexapro] 10 mg PO DAILY 03/18/21 [History] NIFEdipine XL [Procardia XL] 60 mg PO DAILY 08/25/22 [History] Follow up Appointment(s)/Referral(s): Lili Rose DO [Doctor of Osteopathic Medicine] - 2 Weeks Patient Instructions/Handouts: Vaginal Delivery (GEN), Vaginal Delivery (DC)
[2022-08-25] MEDS ORDERED: SENNOSIDES-DOCUSATE SODIUM 1 EACH TAB PO SCH (20:00)
== END 2022-08-25 17:24 | disposition home or self-care (01) | DRG 807 ==
LOC: FBPOP 08:51 → 4FBP 09:23
PROVIDERS: ADMIT Obstetrics & Gynecology Obstetrics; ATTEND Obstetrics & Gynecology Obstetrics
PROC: 0HQ9XZZ Repair Perineum Skin, External Approach (ICD-10-PCS; principal; 2022-08-25)
PROC: 10E0XZZ Delivery of Products of Conception, External Approach (ICD-10-PCS; principal; 2022-08-25)
PROC: 10907ZC Drainage of Amniotic Fluid, Therapeutic from Products of Conception, Via Natural or Artificial Opening (ICD-10-PCS; principal; 2022-08-25)
DX: O60.14X0 Preterm labor third trimester with preterm delivery third trimester, not applicable or unspecified (principal); O62.3 Precipitate labor; O34.219 Maternal care for unspecified type scar from previous cesarean delivery; O70.0 First degree perineal laceration during delivery; Z79.899 Other long term (current) drug therapy; Z79.82 Long term (current) use of aspirin; Z3A.33 33 weeks gestation of pregnancy; Z37.0 Single live birth
CPT/HCPCS: 59025; 85025; 99213